=== PATIENT | male | born 1990 | race Hispanic/Latino ===

== ENCOUNTER 2020-03-29 09:50 | Emergency (ER) | payer OTHER ==
[~2020-03-29] VITALS: Ht 170.2 cm; Wt 81.7 kg
--- NOTE | ~2020-03-29 | EKG ---
[facility] [address] [facility] [place], [place] [address] Draft EKG completed, results pending confirmation PATIENT NAME: JOHNATHON RANDHAWA Electrocardiogram DATE OF : 89 PHYSICIAN: PRELIMINARY REPORT #: [id number] REPORT IS CONFIDENTIAL AND NOT TO BE RELEASED WITHOUT AUTHORIZATION
== END 2020-03-29 13:34 | disposition home or self-care (01) ==
LOC: ED 09:50
DX: R55 Syncope and collapse (principal)
CPT/HCPCS: 80053; 83735; 84484; 85025; 93005; 93010; 99284-25